=== PATIENT | female | born 1985 | race Caucasian/White ===

== ENCOUNTER 2018-01-23 12:07 | Emergency (ER) | payer OTHER ==
[~2018-01-23] VITALS: Ht 167.6 cm; Wt 66.5 kg
[~2018-01-23 12:07] MED LIST: IBUP600 PO; PREN1TAB30; ZANT150T2 PO
[2018-01-23 12:10] VITALS: BP 140/70; PULSE 115; RESP 16; TEMP 98.6; O2SAT 100
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
[2018-01-23] MEDS ORDERED: ONDANSETRON ODT 4 MG TAB PO ONE (12:45)
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
[2018-01-23] MEDS ORDERED: KETOROLAC TROMETHAMINE 60 MG/2 ML (IM) VIAL IM ONE (13:30)
[2018-01-23] MEDS ORDERED: ORPHENADRINE INJ 60 MG/2 ML AMP IM ONE (13:30)
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
[2018-01-23] MEDS ORDERED: NAPR500T2 PO (13:50)
[2018-01-23] MEDS ORDERED: CYCL5TAB PO (13:50)
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
== END 2018-01-23 14:01 | disposition home or self-care (01) ==
LOC: NEPD 12:07
DX: S16.1XXA Strain of muscle, fascia and tendon at neck level, initial encounter (principal); V89.2XXA Person injured in unspecified motor-vehicle accident, traffic, initial encounter; Y92.410 Unspecified street and highway as the place of occurrence of the external cause; M79.1 Myalgia; R51 Headache; M54.9 Dorsalgia, unspecified; R11.2 Nausea with vomiting, unspecified; Z72.0 Tobacco use
CPT/HCPCS: 70450; 72125; 96372; 99283; J1885; J2360